=== PATIENT | female | born 1990 | race Two or more races ===

== ENCOUNTER 2021-05-02 06:21 | Inpatient (IN) | payer OTHER ==
[~2021-05-02] VITALS: Ht 152.4 cm; Wt 70.8 kg
[2021-05-02] MEDS ORDERED: SYNTHROID75 MCG PO (06:35)
[2021-05-02] MEDS ORDERED: COMPLETE NATAL1 EACH PO (06:36)
[2021-05-04] MEDS ORDERED: NAPR500T14 PO (08:52)
== END 2021-05-04 13:38 | disposition home or self-care (01) | DRG 768 ==
LOC: LDR 06:21 → OB/GYN 06:21
PROVIDERS: ADMIT Obstetrics & Gynecology; ATTEND Obstetrics & Gynecology
PROC: 10E0XZZ Delivery of Products of Conception, External Approach (ICD-10-PCS; principal; 2021-05-02)
PROC: 0DQR0ZZ Repair Anal Sphincter, Open Approach (ICD-10-PCS; 2021-05-02)
PROC: 10907ZC Drainage of Amniotic Fluid, Therapeutic from Products of Conception, Via Natural or Artificial Opening (ICD-10-PCS; 2021-05-02)
PROC: 3E033VJ Introduction of Other Hormone into Peripheral Vein, Percutaneous Approach (ICD-10-PCS; 2021-05-02)
PROC: 4A1H7FZ Monitoring of Products of Conception, Cardiac Rhythm, Via Natural or Artificial Opening (ICD-10-PCS; 2021-05-02)
DX: O41.03X0 Oligohydramnios, third trimester, not applicable or unspecified (principal); Z37.0 Single live birth; O70.20 Third degree perineal laceration during delivery, unspecified; Z3A.37 37 weeks gestation of pregnancy; Z20.822 Contact with and (suspected) exposure to COVID-19